=== PATIENT | female | born 2005 | race African-American/Black ===

== ENCOUNTER 2024-10-07 18:22 | Emergency (ER) | payer MEDICAID ==
[~2024-10-07] VITALS: Ht 154.9 cm; Wt 75.0 kg
[2024-10-07 18:28] VITALS: BP 127/80; TEMP 36.8; O2SAT 99
[2024-10-07 18:30] VITALS: PULSE 64; RESP 16; O2SAT 100
== END 2024-10-07 19:32 | disposition home or self-care (01) ==
LOC: ER 18:22
DX: Z32.00 Encounter for pregnancy test, result unknown (principal); J45.909 Unspecified asthma, uncomplicated; M19.90 Unspecified osteoarthritis, unspecified site; Z88.1 Allergy status to other antibiotic agents
CPT/HCPCS: 81025; 99282